=== PATIENT | male | born 1995 | race Caucasian/White ===

== ENCOUNTER → 2019-11-25 14:27 | Outpatient (BNVA) | payer OTHER, SELFPAY | PROVIDERS: Family Provider Nurse Practitioner; PCP Nurse Practitioner; Visit Provider Nurse Practitioner Family | DX: J10.1 Influenza due to other identified influenza virus with other respiratory manifestations (principal); R50.9 Fever, unspecified | CPT/HCPCS: 87804 ==

== ENCOUNTER 2020-03-31 13:20 | Outpatient (CLI) | payer BC, SELFPAY ==
[2020-03-31 14:10] LABS: Viscosity Semen High Viscosity; Volume Semen 1.5 mL (2-5)
[2020-03-31 14:14] LABS: Epithelial Count Semen Rare /hpf; Pathology Referral Yes; Sperm Immotility 0 % (50-60); Sperm Non-Progressive Motility 0 % (5-10); Sperm Progressive Motility 0 % (31-34); White Blood Count Semen Rare /hpf
== END 2020-03-31 13:21 | disposition home or self-care (01) ==
LOC: LAB 13:27
PROVIDERS: Family Provider Nurse Practitioner; PCP Nurse Practitioner; Visit Provider Nurse Practitioner
DX: R86.9 Unspecified abnormal finding in specimens from male genital organs (principal)
CPT/HCPCS: 80500; 89320

== ENCOUNTER → 2020-05-11 08:33 | Outpatient (BNVA) | payer BC, SELFPAY | PROVIDERS: Family Provider Nurse Practitioner; PCP Nurse Practitioner; Referring Provider Nurse Practitioner; Visit Provider Urology | DX: N46.01 Organic azoospermia (principal) | CPT/HCPCS: 81001; 83001; 83002; 84402 ==

== ENCOUNTER → 2020-05-19 08:12 | Outpatient (BNVA) | payer BC, SELFPAY | PROVIDERS: Family Provider Nurse Practitioner; PCP Nurse Practitioner; Visit Provider Urology | DX: N46.01 Organic azoospermia (principal) | CPT/HCPCS: 84146 ==

== ENCOUNTER 2024-03-22 13:36 | Emergency (ER) | payer OTHER, SELFPAY ==
[2024-03-22 13:40] VITALS: BP 156/78; PULSE 98; RESP 16; TEMP 36.7; O2SAT 97
--- NOTE | 2024-03-22 13:44 | ECG_ITS ---
[facility] Test Date: 2024-03-22 Pat Name: Negrito Contreras Department: Room: Gender: Male [employer] Operator: : 1995 Requested By: Cristobal Aguirre Order Number: [id number] Hankins MD: Billy Polanco M.D. Measurements Intervals [place] Rate: 80 P: 67 W[place]: 170 QRS: 27 QRSD: 91 T: 37 QT: 349 QTc: 403 Interpretive Statements SINUS RHYTHM NON SPECIFIC ST T WAVE CHANGES No previous ECG available for comparison Electronically Signed On 03-22-2024 15:04:54 CDT by Billy Polanco M.D. [email or web address]
[2024-03-22 14:50] LABS: Eosinophils % 0.7 %; Hematocrit 42.6 % (37-53); Lymphocytes # 0.8 10^3/uL (0.8-4.8); Lymphocytes % 14.9 %; Mean Corpuscular HGB Conc 35.2 g/dL (30-55); Mean Corpuscular Hemoglobin 30.2 pg (27-33); Mean Corpuscular Volume 85.7 fl (82-101); Mean Platelet Volume 10.7 fL (7.4-10.4); Monocytes # 0.4 10^3/uL (0.2-0.9); Monocytes % 7.2 %; Neutrophils # 4.28 10^3/uL (1.8-7.7); Neutrophils % 76.8 %; Nucleated Red Blood Cells % 0 %; Platelet Count 190 10^3/cmm (157-399); Red Blood Count 4.97 10^6/uL (3.85-5.65); Red Cell Distribution Width 11.9 % (12.1-15.1); White Blood Count 5.57 10^3/uL (3.29-11.43)
[2024-03-22 15:20] LABS: Alanine Aminotransferase 26 U/L (0-41); Albumin Level 4.3 g/dL (3.5-5.2); Alkaline Phosphatase 98 U/L (40-130); Anion Gap 13.9 (5-19); Aspartate Amino Transferase 23 U/L (0-40); Blood Urea Nitrogen 12 mg/dL (6-20); Calcium 9.4 mg/dL (8.5-10.5); Carbon Dioxide 27 mmol/L (22-29); Chloride 104 mmol/L (98-107); Creatine Phosphokinase 176 U/L (39-308); Creatinine Clr Calc Pharmacy 153.4236; Globulin 2.8 g/dL (1.3-4.6); Glomerular Filtration Rate 114.3 mL/min (90-130); Glucose 123 mg/dL (65-115); Magnesium 1.7 mg/dL (1.7-2.3); Osmolality Calculated 293 mOsm/kg (285-295); Potassium 3.9 mmol/L (3.5-5.1); Sodium 141 mmol/L (136-145); Total Bilirubin 0.5 mg/dL (0.15-1.2); Total Protein 7.1 g/dL (6.6-8.7)
--- NOTE | 2024-03-22 15:49 | W.ED.GENADLT ---
HPI - General Adult General: Chief complaint: Dizziness Stated complaint: dizzy/weaknees Time Seen by Provider: 03/22/24 15:09 Source: patient Mode of arrival: ambulatory Limitations: no limitations History of Present Illness: Patient is a nice 28-year-old male presents to ED today with a complaint of 2 episodes while at work earlier today where he felt like his hands cramped and douglas up, his abdomen began cramping and felt like his mouth/jaw was locked up as well. 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 [place] Patient states he never got dizzy or passed out. He states he began feeling better with rest and fluids. He states he has urinated multiple times today and reportedly is normal in color. He states upon arrival to the emergency department he feels pretty well back to normal. Onset (ago): hour(s) Relieving factors: other (fluids/rest) Exacerbating factors: none Associated symptoms: Reports nausea (subsided now) and vomiting (x 1); Deny chest pain, confusion, dyspnea, headache(s), malaise or rash Treatments prior to arrival: other (fluids) Review of Systems Const: Denies: fever(s), chills, body aches, fatigue or malaise Card: Denies: chest pain Resp: Denies: dyspnea GI: Reports: abdominal pain (subsided now), nausea (subsided now) and vomiting (x 1) : Denies: flank pain, difficulty urinating, dysuria, urinary frequency, urinary urgency or urinary hesitancy Musc: Reports: muscle cramps (hands, mouth, abdomen); Denies: neck pain, back pain, extremity pain, extremity swelling or joint pain Skin/Breast: Denies: rash Neuro: Denies: headache(s), numbness in extremities, weakness in extremities, sensory changes, dizziness, confusion or Slurred speech present [facility] ED PFSH: Medical History Azoospermia Surgical History No history of previous surgery Family History Other Cancer History of thyroidectomy Hypertension Denies family history of Diabetes Dementia Social History Smoking and tobacco/nicotine status: never used tobacco/nicotine Second hand smoke exposure: No Alcohol intake: current Alcohol intake frequency: holidays/special occasions only Substance/Drug Use: never Adopted: No Caregiver/support person: No Lives independently: Yes Household members: family Housing: House Marital status: Number of children: 0 Highest education level completed: High School Graduate service: No Current occupational status: employed Pets and animals: Yes Sexually active: Yes Do you think of yourself as: Straight/Heterosexual Current gender identity: Male Physical Exam Const: COMMON NORMALS: no acute distress, average body habitus, patient oriented x3, no limitations, healthy appearing, alert and well nourished GENERAL APPEARANCE: cooperative ORIENTATION/CONSCIOUSNESS: Yes awake, Yes oriented to person, Yes oriented to place and Yes oriented to time HENMT: COMMON NORMALS: normocephalic and atraumatic HEAD & SCALP: normal to inspection, normocephalic and atraumatic Eye: COMMON NORMALS: Equal, round and reactive pupils present and EOMs intact bilaterally GENERAL EYE: appearance normal, both eyes and all related structures and normal light reflex PUPIL: Yes Equal, round and reactive pupils present DIRECT OPHTHALMOSCOPY: Yes normal light reflex Resp: COMMON NORMALS: normal respiratory effort and clear to auscultation bilaterally AUSCULTATION: clear to auscultation bilaterally Cardio: COMMON NORMALS: regular rate and regular rhythm RATE: regular rate RHYTHM: regular rhythm GI: COMMON NORMALS: Normal to inspection, nondistended, normoactive bowel sounds present, Soft to palpation, non-tender and no masses PALPATION: Yes Soft to palpation : COMMON NORMALS: Yes no CVA tenderness BLADDER/KIDNEY EXAM: Yes no CVA tenderness Back/Pelvis: COMMON NORMALS: no CVA tenderness and thoracic and lumbar spine normal to inspection Extremity: COMMON NORMALS: normal to inspection, capillary refill normal, no clubbing, cyanosis or edema, no calf tenderness and no pedal edema GENERAL: Yes normal exam except as noted Neuro: LAURA COMA SCALE: document GCS findings Grover coma scale eye opening: Spontaneous Grover coma scale verbal response: Orientated Grover coma scale motor response: Obey commands Laura coma scale total score: 15 COMMON NORMALS: patient oriented x3, moves all extremities, no focal motor deficits, no sensory deficits noted and gait normal SENSORIUM/ORIENTATION: Yes alert, Yes oriented to person, Yes oriented to place and Yes oriented to time Skin: COMMON NORMALS: no rashes or lesions noted GENERAL SKIN EXAM: no rashes or lesions noted Course Vital Signs: Vital signs: Vital Signs Temperature 98.0 F 03/22/24 16:06 Pulse Rate 58 L 03/22/24 16:06 Respiratory Rate 14 03/22/24 16:06 Blood Pressure 128/70 03/22/24 16:06 Pulse Oximetry 98 03/22/24 16:06 Oxygen Delivery Me thod Room Air 03/22/24 16:00 MDM - General Adult Medical Decision Making Patient reportedly feeling better upon arrival to the emergency department. He clinically appears no acute distress. His vital signs are stable. Blood work including CBC, CMP, mag, CPK are all unremarkable. Patient was encouraged to push fluids and rest the remainder of the evening. Return ED precautions given. Medical Records I reviewed the patient's medical records. Lab Data I reviewed the patient's lab results. 03/22/24 14:25 03/22/24 14:25 Laboratory Results WBC 5.57 10^3/uL (3.29-11.43) 03/22/24 14:25 RBC 4.97 10^6/uL (3.85-5.65) 03/22/24 14:25 Hgb 15.00 g/dL (11.27-16.99) 03/22/24 14:25 Hct 42.6 % (37-53) 03/22/24 14:25 MCV 85.7 fl (82-101) 03/22/24 14:25 MCH 30.2 pg (27-33) 03/22/24 14:25 MCHC 35.2 g/dL (30-55) 03/22/24 14:25 RDW 11.9 % (12.1-15.1) L 03/22/24 14:25 Plt Count 190 10^3/cmm (157-399) 03/22/24 14:25 MPV 10.7 fL (7.4-10.4) H 03/22/24 14:25 Neut % (Auto) 76.8 % 03/22/24 14:25 Lymph % (Auto) 14.9 % 03/22/24 14:25 [place] % (Auto) 7.2 % 03/22/24 14:25 Eos % (Auto) 0.7 % 03/22/24 14:25 Baso % (Auto) 0.0 % 03/22/24 14:25 Neut # (Auto) 4.28 10^3/uL (1.8-7.7) 03/22/24 14:25 Lymph # (Auto) 0.8 10^3/uL (0.8-4.8) 03/22/24 14:25 [place] # (Auto) 0.4 10^3/uL (0.2-0.9) 03/22/24 14:25 Eos # (Auto) 0.0 10^3/uL (0.0-0.8) 03/22/24 14:25 Baso # (Auto) 0.0 10^3/uL (0.0-0.1) 03/22/24 14:25 Nucleated RBC % (auto) 0 % 03/22/24 14:25 Nucleated RBCs # 0.0 /100WBC 03/22/24 14:25 Sodium 141 mmol/L (136-145) 03/22/24 14:25 Potassium 3.9 mmol/L (3.5-5.1) 03/22/24 14:25 Chloride 104 mmol/L (98-107) 03/22/24 14:25 Carbon Dioxide 27 mmol/L (22-29) 03/22/24 14:25 Anion Gap 13.9 (5-19) 03/22/24 14:25 BUN 12 mg/dL (6-20) 03/22/24 14:25 Creatinine 0.8 mg/dL (0.7-1.2) 03/22/24 14:25 GFR Calculation 114.3 mL/min (90-130) 03/22/24 14:25 Glucose 123 mg/dL (65-115) H 03/22/24 14:25 Calculated Osmolality 293 mOsm/kg (285-295) 03/22/24 14:25 Calcium 9.4 mg/dL (8.5-10.5) 03/22/24 14:25 Magnesium 1.7 mg/dL (1.7-2.3) 03/22/24 14:25 Total Bilirubin 0.5 mg/dL (0.15-1.2) 03/22/24 14:25 AST 23 U/L (0-40) 03/22/24 14:25 ALT 26 U/L (0-41) 03/22/24 14:25 Alkaline Phosphatase 98 U/L (40-130) 03/22/24 14:25 Creatine Kinase 176 U/L (39-308) 03/22/24 14:25 Total Protein 7.1 g/dL (6.6-8.7) 03/22/24 14:25 Albumin 4.3 g/dL (3.5-5.2) 03/22/24 14:25 Globulin 2.8 g/dL (1.3-4.6) 03/22/24 14:25 No radiology studies performed this visit Discharge Plan Discharge Patient Disposition: Home Clinical Impression: Heat exhaustion Qualifiers: Encounter type: initial encounter Qualified Code(s): T67.5XXA - Heat exhaustion, unspecified, initial encounter Condition: Stable Prescriptions: No Action azithromycin 250 mg tablet See Rx Instructions PO .COMPLEX Qty: 6 0RF Rx Instructions: take 500 mg today (day 1), then 250 mg for 4 days (days 2-5) PO prednisone 20 mg tablet 20 mg PO DAILY 5 Days Qty: 5 0RF Discharge Orders: Discharge ED (Routine); Ordered 03/22/24 Ordered By: Carmen Benitez Referrals: Mckinley Pagan, [facility] [Primary Care Provider] - Patient Instructions: Heat Cramps - Adult Coding Level of Care Code ED Disc Recordist for Mackenzie Martines
[2024-03-22 16:00] VITALS: BP 128/70; PULSE 58; RESP 14; O2SAT 98
[2024-03-22 16:06] VITALS: BP 128/70; PULSE 58; RESP 14; TEMP 36.7; O2SAT 98
== END 2024-03-22 16:07 | disposition home or self-care (01) ==
PROVIDERS: Emergency Provider Physician Assistant; PCP Nurse Practitioner
DX: T67.5XXA Heat exhaustion, unspecified, initial encounter (principal); X30.XXXA Exposure to excessive natural heat, initial encounter; Y99.0 Civilian activity done for income or pay
CPT/HCPCS: 36415; 80053; 82550; 83735; 85025; 93005; 99284